=== PATIENT | male | born 1960 | race Caucasian/White ===

== ENCOUNTER → 2016-07-19 | Outpatient (CLI) | payer BC, MEDICARE ==
--- NOTE | 2016-07-19 14:28 | CT ---
EXAMINATION TYPE: CT chest wo con DATE OF EXAM: 07/19/2016 1:53 PM COMPARISON: Chest x-ray 13 June 2016 HISTORY: Pulmonary Fibrosis CT DLP: 1380.50 mGycm Automated exposure control for dose reduction was used. FINDINGS: Lung volumes are increased. Pleural thickening is greater along the left hemithorax. Subcentimeter no dularity is scattered throughout the left lung, there is associated bronchiectasis, bronchial wall th ickening. Parenchymal bands are also present on the left, interlobular septal lines are present. Calc ified nodular density present within the lingula measures approximately 2.7 cm, there is some local s carring and possibly atelectatic lung, pleural thickening. There is no pleural or pericardial effusio n. Calcified hilar nodes are present, subcarinal and mediastinal nodes are also calcified. Apical ple ural thickening is also present. There are coronary artery calcifications. Pulmonary artery is prominent. Calcifications present withi n the spleen. IMPRESSION: OLD GRANULOMATOUS DISEASE. CORONARY ARTERY DISEASE. CORRELATE FOR POSSIBLE CHRONIC BRONCHITIS. SUSPEC T POSTINFLAMMATORY SCARRING GREATER THAN THE RIGHT CHEST AND LEFT. THERE MAY BE SOME TRACTION BRONCHI ECTASIS, PULMONARY FIBROSIS. FOLLOW-UP IS SUGGESTED TO ASSESS FOR STABILITY.
== END | disposition home or self-care (01) ==
LOC: RADCTMAIN 13:00
PROVIDERS: ATTEND Internal Medicine
DX: J84.10 Pulmonary fibrosis, unspecified (principal); I25.10 Atherosclerotic heart disease of native coronary artery without angina pectoris
CPT/HCPCS: 71250